=== PATIENT | female | born 1990 | race American Indian/Alaskan Native ===

== ENCOUNTER 2017-03-04 13:30 | Inpatient (IN) | payer MEDICAID ==
[2017-03-04 14:22] LABS: Urine Drugs of Abuse Note Disclamer
[2017-03-04 14:40] LABS: Bacteria,Urine 2+ /HPF (Negative); Bilirubin,Urine NEG (Negative); Blood,Urine MOD (Negative); Ketones,Urine 80 mg/dL (Negative); Leukocyte Esterase,Urine LG (Negative); Mucus,Urine 3+ /HPF; Nitrite,Urine NEG (Negative)
[2017-03-04 14:44] LABS: WBC,Urine > 182.0 /HPF (0.0-6.0)
[2017-03-04] MEDS ORDERED: LACTATED RINGERS 1,000 ML IV SCH (15:00)
[2017-03-04] MEDS ORDERED: LACTATED RINGERS 500 ML IV ONE (15:00)
[2017-03-04] MEDS: LACTATED RINGERS 1,000 ML IV SCH ×2 (16:00→17:05)
[2017-03-04] MEDS ORDERED: POLYCILLIN/NS 2 GM/100 ML 2 GM/100 ML BAG IV ONE (16:22)
[2017-03-04] MEDS ORDERED: SUBLIMAZE ONE (16:22)
[2017-03-04 16:27] LABS: Basophils % (Auto) 0.4 % (0.0-1.8); Eosinophils % (Auto) 0.6 % (0.0-4.3); Hemoglobin 10.9 gm/dl (10.1-14.3); Mean Corpuscular HGB Conc 34 % (30-34); Mean Corpuscular Hemoglobin 31 pg (28-32); Mean Corpuscular Volume 91 fl (79-97); Platelet Count 177 K/mm3 (140-440); Red Blood Count 3.53 M/mm3 (3.65-5.03); Red Cell Distribution Width 14.4 % (13.2-15.2); White Blood Count 12.6 K/mm3 (4.5-11.0)
[2017-03-04] MEDS ORDERED: XYLOCAINE 2% INFILTRATI ONE (16:58)
[2017-03-04] MEDS ORDERED: ePHEDrine SULFATE IV PRN (16:58)
[2017-03-04] MEDS ORDERED: BRETHINE SUB-Q PRN (16:58)
[2017-03-04] MEDS ORDERED: MINERAL OIL PO PRN (16:58)
[2017-03-04] MEDS ORDERED: BRETHINE IVP PRN (16:58)
[2017-03-04] MEDS ORDERED: PITOCin/NS 30 UNIT/500ML 30 UNITS/500 ML BAG IV SCH (17:00)
[2017-03-04] MEDS ORDERED: PITOCin/NS 20 UNIT/1000ML DRIP 20 UNITS/1,000 ML BAG IV SCH (17:00)
[2017-03-04] MEDS ORDERED: NACL 0.9% 1000 ML 1,000 ML VG SCH (17:00)
--- NOTE | 2017-03-04 17:02 | History and Physical Report ---
History of Present Illness Date of examination: 03/04/17 Date of admission: 03/04/17 15:45 Chief complaint: leakage of fluid History of present illness: 26y/o @ 35+6 weeks by the patient report. She states she had an ultrasound at [facility]. The patient has not had care during this . She presented to triage with the complaint of abnormal vaginal discharge. The patient was observed and spontaneous rupture of membranes with thick meconium and advanced cervical dilation of 7cm. Past History Past Medical History: no pertinent history Past Surgical History: no surgical history Social history: single - Obstetrical History : 4 Para: 3 Hx # Term Pregnancies: 3 Number of Pregnancies: 0 Spontaneous Abortions: 0 Induced : 0 Number of Living Children: 3 Medications and Allergies Allergies Allergy/AdvReac Type Severity Reaction Status Date / Time No Known Allergies Allergy Unverified 03/04/17 14:12 Active Meds: Active Medications Lactated Ringer's (Lactated Ringers) 1,000 mls @ 125 mls/hr IV DIRECT NEFTALY Review of Systems All systems: negative Genitourinary: leakage of fluid, pelvic pain, contractions - Vital Signs Vital signs: Vital Signs Pulse BP 85 107/59 03/04/17 13:59 03/04/17 13:59 Temp Pulse Resp BP Pulse Ox 98.6 F 87 16 120/70 03/04/17 14:15 03/04/17 15:07 03/04/17 14:15 03/04/17 15:07 - Physical Exam Breasts: Positive: deferred Cardiovascular: Regular rate Lungs: Positive: Clear to auscultation Abdomen: Positive: normal appearance Results Result Diagrams: 03/04/17 Unknown Abnormal lab results 03/04/17 03/04/17 Range/Units Unknown Unknown WBC 12.6 H (4.5-11.0) K/mm3 RBC 3.53 L (3.65-5.03) M/mm3 [place] % (Auto) 7.6 H (0.0-7.3) % [place] # 1.0 H (0.0-0.8) K/mm3 Seg Neutrophils % 77.7 H (40.0-70.0) % Seg Neutrophils # 9.8 H (1.8-7.7) K/mm3 Urine WBC (Auto) > 182.0 H (0.0-6.0) /HPF U Epithel Cells (Auto) 25.0 H (0-13.0) /HPF All other labs normal. Assessment and Plan - Patient Problems (1) Insufficient care Current Visit: Yes Status: Acute Qualifiers: Trimester: T Plan to address problem: admit to L&D (2) Active labor Current Visit: Yes Status: Acute
[2017-03-04] MEDS ORDERED: ePHEDrine SULFATE ONE (17:46)
[2017-03-04 17:53] LABS: HIV-1 Antigen p24 Non React (Non React); HIVR-1/2 Ab Non React (Non React)
[2017-03-04] MEDS ORDERED: TYLENOL PO PRN (18:20)
[2017-03-04] MEDS ORDERED: PHENERGAN PO PRN (18:20)
[2017-03-04] MEDS ORDERED: DULCOLAX PR PRN (18:20)
[2017-03-04] MEDS ORDERED: PHENERGAN PR PRN (18:20)
[2017-03-04] MEDS ORDERED: TUCKS PAD TP PRN (18:20)
[2017-03-04] MEDS ORDERED: MILK OF MAGNESIA PO PRN (18:20)
[2017-03-04] MEDS ORDERED: NORCO 5/325 PO PRN (18:20)
[2017-03-04] MEDS ORDERED: BENADRYL PO PRN (18:20)
[2017-03-04] MEDS ORDERED: LANSINOH TP PRN (18:20)
[2017-03-04] MEDS ORDERED: ZOFRAN IV PRN (18:20)
--- NOTE | 2017-03-04 18:20 | Procedure Note ---
OB Delivery Note - Delivery Date of Delivery: 03/04/17 Surgeon: MARYAM HELTON Estimated blood loss: other (150ml) - Vaginal Delivery presentation: vertex Delivery position: OA Intrapartum events: labor-<37 weeks, meconium Delivery monitor: internal FHT, internal uterine Route of delivery: Delivery placenta: spontaneous Delivery cord: 3 umbilical vessels Episiotomy: none Delivery laceration: none Anesthesia: none Delivery comments: Patient progressed to C/C/+2 and pushed to deliver liveborn female with apgars of 8/9. After delivery of the shoulders, the cord was clamped and cut and infant transferred to warmer where peds was in attendance for meconium stained fluid. The was not stimulated. The placenta delivered spontaneously intact with a 3VC. No lacerations noted. Weight 7lbs 0oz. EBL 150ml - A at 1 minute: 8 at 5 minutes: 9 Gender: Female (weight 7lbs 0oz)
[2017-03-04] MEDS ORDERED: SODIUM CHLORIDE FLUSH SYRINGE 10 ML IV SCH (19:00)
[2017-03-04] MEDS: MOTRIN PO SCH (21:14)
[2017-03-05] MEDS: MOTRIN PO SCH ×4 (00:14→18:30)
[2017-03-05 08:19] LABS: Hemoglobin 9.2 gm/dl (10.1-14.3)
--- NOTE | 2017-03-05 09:01 | Ultrasound Report ---
Limited OB: History: Position and NENA Findings: Gestation: Single Position: Cephalic Amniotic Fluid: NENA = 15.8 cm Heart Rate: 1:30 BPM
[2017-03-05] MEDS ORDERED: ROCEPHIN/NS 1 GM/50 ML 1 GM/50 ML BAG IV ONE (10:00)
--- NOTE | 2017-03-05 10:07 | Progress Note ---
Assessment and Plan A: PPD#1 s/p at 35 wks, no care, asymptomatic anemia P: Routine care. Plan discharge tonight. Pt desires tubal ligation and needs to sign Medicaid consent form. Subjective - Subjective Date of service: 03/05/17 Principal diagnosis: s/p , no care, asymptomatic anemia Interval history: Pt without complaints. She reports that she does not have anything ready for the baby because she thought she was 5 months . She does not have a car seat yet. She would like to be discharged today so she can get things ready for the baby at home. Patient reports: appetite normal, voiding normally, pain well controlled, ambulating normally, no nauseated : doing well Objective - Vital Signs Latest vital signs: Vital Signs Temp Pulse Resp BP BP 03/05/17 08:35 98.4 F 73 20 100/61 03/05/17 04:25 98.2 F 80 20 110/78 03/05/17 01:00 98.3 F 72 20 106/58 03/04/17 20:10 97.5 F L 80 18 112/70 03/04/17 19:43 91 H 120/75 03/04/17 19:41 86 120/76 03/04/17 18:59 90 110/63 03/04/17 18:43 97 H 121/62 03/04/17 18:28 100 H 110/73 03/04/17 15:07 87 120/70 03/04/17 14:48 86 85/46 03/04/17 14:15 98.6 F 85 16 107/59 03/04/17 13:59 85 107/59 Intake and Output 03/04/17 03/05/17 03/05/17 22:59 06:59 14:59 Intake Total 135.417 480 120 Output Total 800 600 Balance 135.417 -320 -480 Intake: IV 135.417 Lactated Ringers 1,000 ml 135.417 @ 125 mls/hr IV DIRECT NEFTALY Rx#:[id number] Oral 480 120 Output: Urine 800 600 Void 800 600 Other: Total, Intake Amount 240 120 Total, Output Amount 800 600 - Exam Breasts: Present: deferred Cardiovascular: Present: Regular rate Lungs: Present: Clear to auscultation Abdomen: Present: soft Uterus: Present: fundal height below umbilicus Extremities: Present: normal - Labs Labs: Abnormal lab results 03/04/17 03/04/17 03/04/17 Range/Units 15:44 Unknown Unknown WBC 12.6 H (4.5-11.0) K/mm3 RBC 3.53 L (3.65-5.03) M/mm3 Hgb (10.1-14.3) gm/dl Hct (30.3-42.9) % [place] % (Auto) 7.6 H (0.0-7.3) % [place] # 1.0 H (0.0-0.8) K/mm3 Seg Neutrophils % 77.7 H (40.0-70.0) % Seg Neutrophils # 9.8 H (1.8-7.7) K/mm3 Urine WBC (Auto) > 182.0 H (0.0-6.0) /HPF U Epithel Cells (Auto) 25.0 H (0-13.0) /HPF Crossmatch See Detail 03/05/17 Range/Units 08:01 WBC (4.5-11.0) K/mm3 RBC (3.65-5.03) M/mm3 Hgb 9.2 L (10.1-14.3) gm/dl Hct 27.0 L (30.3-42.9) % [place] % (Auto) (0.0-7.3) % [place] # (0.0-0.8) K/mm3 Seg Neutrophils % (40.0-70.0) % Seg Neutrophils # (1.8-7.7) K/mm3 Urine WBC (Auto) (0.0-6.0) /HPF U Epithel Cells (Auto) (0-13.0) /HPF Crossmatch
--- NOTE | 2017-03-05 10:12 | Discharge Summary ---
Providers - Providers Date of Admission: 03/04/17 15:45 Date of discharge: 03/05/17 Attending physician: MARYAM HELTON 03/05/17 10:09 Consult to Case Management [CONS] Routine Services Needed at Discharge: Chief Digital Officer Additional Physician Instructions: No care; pt did not disclose to her family Primary care physician: NITRATOR OPERATOR Hospitalization Reason for admission: active labor, rupture of membranes Delivery: Procedure details: Please see delivery note. Episiotomy: none Laceration: none Other procedures: none complications: none Discharge diagnosis: delivery baby: female Hospital course: Pt was admitted in active labor with rupture of membranes and went on to have a spontaneous vaginal delivery which she tolerated well. The remainder of her course was uncomplicated and she met discharge criteria on PPD#1. She will follow up in the office in 4 wks for her exam. Condition at discharge: Stable Disposition: DC TO HOME OR SELFCARE - Discharge Diagnoses (1) Anemia Status: Acute Qualifiers: Anemia type: unspecified type Iron deficiency anemia type: I Vitamin B12 deficiency anemia type: V Folate deficiency anemia type: F Bone marrow failure anemia type: B Hemolytic anemia type: H Other causes of anemia: O Chronic kidney disease stage: C Qualified Code(s): D64.9 - Anemia, unspecified (2) Insufficient care Status: Acute Qualifiers: Trimester: third trimester Qualified Code(s): O09.33 - Supervision of with insufficient care, third trimester (3) Term of female Status: Acute Plan - Discharge Medications Prescriptions: Ferrous Sulfate [Feosol 325 MG tab] 325 mg PO BID #60 tablet HYDROcodone/APAP 5-325 [[place] 5/325] 1 each PO Q6HR PRN #30 tablet PRN Reason: Pain Ibuprofen [Motrin] 800 mg PO Q8HR PRN #30 tablet PRN Reason: Pain - Provider Discharge Summary Activity: routine, no sex for 6 weeks, no heavy lifting 4 weeks, no strenuous exercise Diet: routine Instructions: routine Additional instructions: [] Smoking cessation referral if applicable(refer to patient education folder for contact #) [] Refer to [facility]'s [facility] Booklet Call your doctor immediately for: * Fever > 100.5 * Heavy vaginal bleeding ( >1 pad per hour) * Severe persistent headache * Shortness of breath * Reddened, hot, painful area to leg or breast * Drainage or odor from incision. * Keep incision clean and dry at all times and follow doctor's instructions regarding bathing/showering - Follow up plan Follow up: PRIMARY CARE, [Primary Care Provider] - 7 Days MARYAM HELTON MD [Staff Physician] - 04/01/17 ( exam )
[2017-03-05 22:55] VITALS: BP 115/68
== END 2017-03-05 20:50 | disposition home or self-care (01) | DRG 775 ==
LOC: TRG 13:30 → EDBD 15:45 → LD 15:45 → OB 20:07
PROVIDERS: ADMIT Obstetrics & Gynecology; ATTEND Obstetrics & Gynecology
PROC: 10E0XZZ Delivery of Products of Conception, External Approach (ICD-10-PCS; principal; 2017-03-04)
DX: O60.14X0 Preterm labor third trimester with preterm delivery third trimester, not applicable or unspecified (principal); Z3A.35 35 weeks gestation of pregnancy; Z37.0 Single live birth; O77.0 Labor and delivery complicated by meconium in amniotic fluid; O90.81 Anemia of the puerperium; D64.9 Anemia, unspecified
CPT/HCPCS: 36415; 76815; 80307; 81001; 85014; 85018; 85025; 86592; 86706; 86762; 86850; 86870; 86900; 86901; 87806; 99406; J0290; J0696; J2590; J3010; J7030; J7120

== ENCOUNTER 2017-12-03 12:50 | Emergency (ER) | payer MEDICAID ==
[2017-12-03 13:04] VITALS: BP 117/78
--- NOTE | 2017-12-03 15:49 | Emergency Department Report ---
ED Abdominal Pain HPI - General Chief Complaint: Abdominal Pain Stated Complaint: STOAMCH PAIN Time Seen by Provider: 12/03/17 15:33 Source: patient Mode of arrival: Ambulatory Limitations: No Limitations - History of Present Illness -: Gradual, month(s) (1) Location: diffuse Radiation: none Migration to: no migration Severity: mild Quality: cramping Improves With: nothing Worsens With: eating Associated Symptoms: nausea, diarrhea, constipation - Related Data Previous Rx's Medication Instructions Recorded Last Taken Type Ibuprofen [Motrin] 800 mg PO Q8HR PRN #60 tablet 04/16/17 Unknown Rx oxyCODONE /ACETAMINOPHEN [Percocet 1 tab PO Q6HR PRN #30 tablet 04/16/17 Unknown Rx 5/325] Allergies Allergy/AdvReac Type Severity Reaction Status Date / Time No Known Allergies Allergy Unverified 04/07/17 16:51 ED Review of Systems ROS: Stated complaint: STOAMCH PAIN Other details as noted in HPI Comment: All other systems reviewed and negative Constitutional: denies: fever, malaise Respiratory: denies: cough ED Past Medical Hx - Past Medical History Previous Medical History?: Yes Hx Hypertension: No Hx Congestive Heart Failure: No Hx Diabetes: No Hx Deep Vein Thrombosis: No Hx Renal Disease: No Hx Sickle Cell Disease: No Hx Headaches / Migraines: Yes (migraines) Hx Seizures: No Hx Asthma: No Hx COPD: No Hx HIV: No Additional medical history: 'poss gastric ulcers from taking so many BC's" tubal ligation - Surgical History Past Surgical History?: No Additional Surgical History: Tubal ligation - Social History Smoking Status: Current Every Day Smoker Substance Use Type: Alcohol, Non Opiate Pain - Medications Home Medications: Home Medications Medication Instructions Recorded Confirmed Last Taken Type Ibuprofen [Motrin] 800 mg PO Q8HR PRN #60 tablet 04/16/17 Unknown Rx oxyCODONE /ACETAMINOPHEN [Percocet 1 tab PO Q6HR PRN #30 tablet 04/16/17 Unknown Rx 5/325] ED Physical Exam - General Limitations: No Limitations General appearance: alert, in no apparent distress - Head Head exam: Present: atraumatic - Eye Eye exam: Present: normal appearance - ENT ENT exam: Present: mucous membranes moist - Neck Neck exam: Present: normal inspection - Respiratory Respiratory exam: Present: normal lung sounds bilaterally. Absent: respiratory distress, wheezes, rales, rhonchi - Cardiovascular Cardiovascular Exam: Present: regular rate, normal rhythm, normal heart sounds. Absent: systolic murmur, diastolic murmur, rubs, gallop - GI/Abdominal GI/Abdominal exam: Present: soft, normal bowel sounds. Absent: distended, tenderness, guarding, rebound - Extremities Exam Extremities exam: Present: normal inspection - Back Exam Back exam: Present: normal inspection - Neurological Exam Neurological exam: Present: alert, oriented X3 - Psychiatric Psychiatric exam: Present: normal affect, normal mood - Skin Skin exam: Present: warm, dry, intact, normal color. Absent: rash ED Course Vital Signs 12/03/17 13:01 Temperature 99.4 F Pulse Rate 89 Respiratory 20 Rate Blood Pressure 117/78 O2 Sat by Pulse 96 Oximetry ED Medical Decision Making - Medical Decision Making Ms. Lugo has history of tubal ligation. She is a 27-year-old female with crampy abdominal pain with bloating and intermittent diarrhea and constipation. I suspect IBS. I prescribed famotidine. Referred outside clinic. Critical care attestation.: If time is entered above; I have spent that time in minutes in the direct care of this critically ill patient, excluding procedure time. ED Disposition Clinical Impression: Abdominal pain Disposition: DC-01 TO HOME OR SELFCARE Is pt being admited?: No Does the pt Need Aspirin: No Condition: Stable Instructions: Abdominal Pain (ED), Irritable Bowel Syndrome (ED) Referrals: [facility] [Outside] - 3-5 Days Time of Disposition: 15:50
== END 2017-12-03 16:02 | disposition home or self-care (01) ==
LOC: ED 12:50
DX: R10.84 Generalized abdominal pain (principal); R11.0 Nausea; R19.7 Diarrhea, unspecified; G43.909 Migraine, unspecified, not intractable, without status migrainosus; F17.200 Nicotine dependence, unspecified, uncomplicated
CPT/HCPCS: 99282